=== PATIENT | male | born 1990 | race Caucasian/White ===

== ENCOUNTER 2017-10-02 19:49 | Emergency (ER) | payer BC, OTHER ==
[~2017-10-02] VITALS: Ht 167.6 cm; Wt 85.9 kg
[~2017-10-02 19:49] MED LIST: ADD/10 PO; MULT-506 PO
[2017-10-02 19:54] VITALS: Ht 167.6 cm; Wt 85.9 kg
[2017-10-02] MEDS ORDERED: LIDOCAINE/EPINEPH/TETRACAINE 1 EA SYR EXT STA (20:20)
[2017-10-02] MEDS ORDERED: LIDOCAINE/EPINEPH/TETRACAINE 1 EA SYR ONE (20:21)
[2017-10-02] MEDS ORDERED: EPP3/2 IM (20:25)
[2017-10-02] MEDS ORDERED: LIDOCAINE 1% BUFFERED INJ 20 ML VIAL ONE (21:16)
[2017-10-02] MEDS ORDERED: CHLORHEXIDINE GLUCONATE 0.12% 480 ML MT STA ×2 (21:26→21:47)
--- NOTE | 2017-10-02 21:55 | EMERGENCY ROOM VISIT NOTE ---
ED Visit Note First contact with patient: 20:20 CHIEF COMPLAINT: Facial laceration HISTORY OF PRESENT ILLNESS: This patient is a 27-year-old male that presents to the emergency department complaining of a laceration to the outside and inside of his lip that he sustained while tubing. He accidentally hit his face off of his friend's knee. He denies any severe facial pain. The bleeding is controlled. His tetanus shot is up-to-date. He has not taken anything for pain. He denies any pain in the neck. He thinks that his teeth are intact. REVIEW OF SYSTEMS: A 6 system review of systems was completed with positives and pertinent negatives listed in the HPI. ALLERGIES: Penicillin, amoxicillin. MEDICATIONS: None PMH: Otherwise healthy SOCIAL HISTORY: The patient is employed. Occasional EtOH use. No tobacco use. PHYSICAL EXAM: Vital Signs: Reviewed Nurse's notes, vital signs stable. GENERAL : 27-year-old male, in no acute distress, well-developed, well-nourished. NEURO : The patient is alert and oriented to person place and time. No focal neurological defects. EYES: Pupils are round, equal, and react to light. EOMI. NECK: Supple. Full range of motion of the neck . FACE: No facial bone tenderness or mandibular tenderness. The mouth can open fully. The teeth are well aligned. No loose or chipped teeth. SKIN: There is a 2.5 cm gaping laceration noted to the lower lip along the vermilion border. There is no foreign material in the wound. It appears clean. No active bleeding. MOUTH: There is a 1 cm, gaping full-thickness laceration noted to the lower lip on the wet vermilion. No active bleeding. No foreign material in the wound. EMERGENCY DEPARTMENT COURSE: I examined the patient. Verbal consent was obtained to perform the procedure. Let gel was applied to the wound on the outside of the lower lip. Using sterile technique the wound was cleansed with Betadine. The area was sterilely draped. An additional 3 ml of 1% buffered lidocaine was used to anesthetize the lacerations. Once the patient was anesthetized, the wound was copiously irrigated under pressure with sterile saline. The wound was explored and was as described above. The laceration on the outside of the lower lip was repaired using 6 simple interrupted 6-0 nylon sutures with the wound edges being well approximated. The patient rinsed with Peridex solution. The laceration on the on the wet vermilion side of the lower lip was repaired using 3 simple interrupted 5-0 Vicryl sutures. He was given 1 dose of clindamycin. The patient tolerated the procedure well. Hemostasis was achieved. The patient was discharged home in good condition. DIAGNOSIS: Facial/lip laceration DISCHARGE INSTRUCTIONS: Keep wounds clean. Take the ENTIRE course of clindamycin. Please rinse the mouth with Peridex 3 times daily, especially after eating. It is okay to gently wash the outside wound with soapy water. Do not submerse it in water for long periods of time such as swimming, going in hot tubs or taking baths until the sutures come out. Do not allow any crusting or dried blood to accumulate on sutures. If this occurs, use a 1:1 solution of hydrogen peroxide/ water on a Q-tip to clean the wound. Use bacitracin to the outside of the wound once daily for the first 2 days. Then let wound dry. Suture removal in 7 days. Return sooner for any signs of infection (increasing redness, swelling , drainage). Once the sutures come out. Please apply a significant sunscreen such as SPF 50 to the area to prevent scar. You may also use a silicone-based scar prevention such as ScarAway that can be found at pharmacies. Ibuprofen 600 mg and Tylenol 1000 mg every 6 hrs as needed for pain.. It was a pleasure participating in your care today This chart was completed in part utilizing [employer] Speech Voice Recognition software. Attempts were made to minimize the grammatical errors, random word insertions, pronoun errors and incomplete sentences. Any formal questions or concerns about the content, text or information contained within the body of this dictation should be directly addressed to the provider for clarification.
[2017-10-02] MEDS ORDERED: CLIN300C2 PO (21:56)
[2017-10-02] MEDS ORDERED: PRDXLUD MT (21:56)
[2017-10-02] MEDS ORDERED: CLINDAMYCIN HCL 150 MG CAP PO ONE (22:00)
[2017-10-02 22:04] VITALS: BP 124/74; PULSE 94; TEMP 37.1; O2SAT 97
== END 2017-10-02 22:05 | disposition home or self-care (01) ==
LOC: C.EDB 19:51 → C.EDD 22:05
DX: S01.511A Laceration without foreign body of lip, initial encounter (principal); W22.8XXA Striking against or struck by other objects, initial encounter; Y93.16 Activity, rowing, canoeing, kayaking, rafting and tubing; Z88.0 Allergy status to penicillin